=== PATIENT | female | born 1985 | race Two or more races ===

== ENCOUNTER 2024-07-04 01:52 | Emergency (ER) | payer MEDICAID, OTHER ==
[~2024-07-04] VITALS: Ht 160 cm; Wt 72.7 kg
[2024-07-04] MEDS ORDERED: SODIUM CHLORIDE 0.9% 1,000 ML IV ONE (02:30)
[2024-07-04 02:58] LABS: Basophils # (auto) 0.1 10 ^3/uL (0-0.2); Eosinophils # (auto) 0.1 10 ^3/uL (0-0.8); Monocytes # (auto) 0.8 10 ^3/uL (0-1.3); Neutrophils % (auto) 69.7 % (37.0-80.0)
[2024-07-04 03:00] LABS: Basophils % (auto) 0.6 % (0.0-2.0); Eosinophils % (auto) 0.8 % (0.0-7.0); Hematocrit 36.8 % (36.0-46.0); Hemoglobin 12.4 g/dL (12.2-16.2); Lymphocytes # (auto) 2.3 10 ^3/uL (0.4-5.4); Lymphocytes % (auto) 21.6 % (10.0-50.0); Mean Corpuscular Hemoglobin 26.7 pg (28.0-32.0); Mean Corpuscular Hgb Conc. 33.8 g/dL (32.0-36.0); Mean Corpuscular Volume 79.1 fL (80.0-100.0); Monocytes % (auto) 7.3 % (0.0-12.0); Neutrophils # (auto) 7.5 10 ^3/uL (1.6-8.6); Platelet Count (auto) 355 10^3/uL (140-450); Red Blood Cells 4.66 10^6/uL (4.0-5.20); Red Cell Distribution Width 14.8 % (11.8-14.3); White Blood Cell 10.8 10^3/uL (4.4-10.8)
[2024-07-04 03:18] LABS: Alanine Aminotransferase 22 U/L (7-40); Albumin 4.8 g/dL (3.2-4.8); Alkaline Phosphatase 99 U/L (46-116); Anion Gap 11 (5-15); Aspartate Aminotransferase 25 U/L (13-40); BUN/Creatinine Ratio 17.5 (10.0-20.0); Blood Urea Nitrogen 11 mg/dL (9-23); Calcium 9.2 mg/dL (8.7-10.4); Carbon Dioxide 23 mmol/L (20-31); Chloride 104 mmol/L (98-107); Lipase 45 U/L (12-53); Sodium 138 mmol/L (136-145); Total Protein 7.8 g/dL (5.7-8.2)
[2024-07-04 03:19] LABS: Bilirubin, Total 0.6 mg/dL (0.2-1.0); Glucose 113 mg/dL (74-106); Potassium 3.5 mmol/L (3.5-5.1)
[2024-07-04] MEDS: SODIUM CHLORIDE 0.9% 500 ML IV ONE (04:03)
[2024-07-04] MEDS: ONDANSETRON HCL 4 MG/2 ML VIAL IV ONE (04:03)
--- NOTE | 2024-07-04 04:10 | ED.PDOC ---
GI ASSESSMENT HPI Comments PER EMS, PATIENT C/O GENERALIZED ABDOMINAL PAIN WITH N/V X1 HOUR. DENIES DIARRHEA. PATIENT STATES SHE WAS DIAGNOSED WITH GALLSTONES 3 MONTHS AGO. DENIES FEVER, CHILLS, RECENT TRAVEL OR KNOWN ILL CONTACTS. 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 History Family History Family History: Reviewed,noncontributory to illness Constitutional: denies: chills, diaphoresis, fatigue, fever, malaise, sweats, weakness, others EENTM: denies: blurred vision, double vision, ear bleeding, ear discharge, ear drainage, ear pain, ear ringing, eye pain, eye redness, hearing loss, mouth pain, mouth swelling, nasal discharge, nose bleeding, nose congestion, nose pain, photophobia, tearing, throat pain, throat swelling, voice changes, others Respiratory: denies: cough, hemoptysis, orthopnea, SOB at rest, shortness of breath, SOB with excertion, stridor, wheezing, others Cardiovascular: denies: chest pain, dizzy spells, diaphoresis, Dyspnea on exertion, edema, irregular heart beat, left arm pain, lightheadedness, palpi tations, PND, syncope, others Gastrointestinal: reports: abdomen distended, abdominal pain, nausea, vomiting; denies: blood streaked bowels, constipated, diarrhea, dysphagia, difficulty swallowing, hematemesis, melena, poor appetite, poor fluid intake, rectal bleeding, rectal pain, others Genitourinary: denies: abnormal vagina bleeding, burning, dyspareunia, dysuria, flank pain, frequency, hematuria, incontinence, pain, , vagina discharge, urgency, others Neurological: denies: dizziness, fainting, headache, left sided numbness, left sided weakness, numbness, paresthesia, pre-existing deficit, right sided numbness, right sided weakness, seizure, speech problems, tingling, tremors, weakness, others Musculoskeletal: denies: back pain, gout, joint pain, joint swelling, muscle pain, muscle stiffness, neck pain, others Integumetry: denies: bruises, change in color, change in hair/nails, dryness, laceration, lesions, lumps, rash, wounds, others Allergic/Immunocompromised: denies: Difficulty Healing, Frequent Infections, Hives, Itching, others Hematologic/Lymphatic: denies: anemia, blood clots, easy bleeding, easy bruising, swollen glands, others Endocrine: denies: excessive hunger, excessive sweating, excessive thirst, excessive urination, flushing, intolerance to cold, intolerance to heat, unexplained weight gain, unexplained weight loss, others Psychiatric: denies: anxiety, bipolar disorder, depression, hopeless, panic disorder, schizophrenia, sleepless, suicidal, others Physical Exam General Appearance: No Apparent Distress, Normal HEENT: Pharynx Normal Neck: Full Range of Motion, Non-Tender Respiratory: Lungs Clear, No Respiratory Distress, Normal Breath Sounds Cardiovascular: No Edema, No JVD, No Murmur, No Gallop, Normal Peripheral Pul ses, Regular Rate/Rhythm Breast Exam: Deferred Gastrointestinal: No Organomegaly, No Pulsatile Mass, Normal Bowel Sounds, Soft, Tenderness (RIGHT UPPER QUADRANT NEGATIVE OSULLIVAN'S SIGN) Genitalia: Deferred Pelvic: Deferred Rectal: Deferred Extremities: No calf tenderness, Normal capillary refill, Normal inspection, Normal range of motion, Non-tender, No pedal edema Musculoskeletal : Apperance: Normal Neurologic: Alert, voice systems engineer II-XII nml as Tested, No Motor Deficits, Normal Affect, Normal Mood, No Sensory Deficits Cerebellar Function: Normal Reflexes: Normal Skin: Dry, Normal Color, Warm Lymphatic: No Adenopathy Was a procedure done? Was a procedure done?: No GI differential Dx Differential Diagnosis: Appendicitis, Bowel Obstruction, Cholangitis, Cholecystitis, Constipation, Gastritis/PUD, Gastroenteritis, Inflammatory BD, Pancreatitis, UTI, Urolithiasis X-Ray, Labs, Meds, VS Vital Signs Date Time Temp Pulse Resp B/P (MAP) Pulse Ox O2 Delivery O2 Flow Rate FiO2 07/04/24 05:48 98.5 77 16 130/80 (97) 99 98.5 07/04/24 04:00 Room Air* 0 21 07/04/24 02:08 98.7 103 20 150/83 (105) 95 98.7 07/04/24 01:56 74 Lab Test 07/04/24 02:44 07/04/24 00:00 Range/Units White Blood Count 10.8 4.4-10.8 10^3/uL Red Blood Count 4.66 4.0-5.20 10^6/uL Hemoglobin 12.4 12.2-16.2 g/dL Hematocrit 36.8 36.0-46.0 % Mean Corpuscular Volume 79.1 L 80.0-100.0 fL Mean Corpuscular Hemoglobin 26.7 L 28.0-32.0 pg Mean Corpuscular Hemoglobin Concent 33.8 32.0-36.0 g/dL Red Cell Distribution Width 14.8 H 11.8-14.3 % Platelet Count 355 140-450 10^3/uL Mean Platelet Volume 6.8 L 6.9-10.8 fL Neutrophils (%) (Auto) 69.7 37.0-80.0 % Lymphocytes (%) (Auto) 21.6 10.0-50.0 % Monocytes (%) (Auto) 7.3 0.0-12.0 % Eosinophils (%) (Auto) 0.8 0.0-7.0 % Basophils (%) (Auto) 0.6 0.0-2.0 % Neutrophils # (Auto) 7.5 1.6-8.6 10 ^3/uL Lymphocytes # (Auto) 2.3 0.4-5.4 10 ^3/uL Monocytes # (Auto) 0.8 0-1.3 10 ^3/uL Eosinophils # (Auto) 0.1 0-0.8 10 ^3/uL Basophils # (Auto) 0.1 0-0.2 10 ^3/uL Nucleated Red Blood Cells 0.0 % Sodium Level 138 136-145 mmol/L Potassium Level 3.5 3.5-5.1 mmol/L Chloride Level 104 98-107 mmol/L Carbon Dioxide Level 23 20-31 mmol/L Anion Gap 11 5-15 Blood Urea Nitrogen 11 9-23 mg/dL Creatinine 0.63 0.550-1.02 mg/dL Glomerular Filtration Rate Calc 116 >90 mL/min BUN/Creatinine Ratio 17.5 10.0-20.0 Serum Glucose 113 H 74-106 mg/dL Calcium Level 9.2 8.7-10.4 mg/dL Total Bilirubin 0.6 0.2-1.0 mg/dL Aspartate Amino Transferase (AST) 25 13-40 U/L Alanine Aminotransferase (ALT) 22 7-40 U/L Alkaline Phosphatase 99 46-116 U/L Total Protein 7.8 5.7-8.2 g/dL Albumin 4.8 3.2-4.8 g/dL Lipase 45 12-53 U/L Urine Color Light-yellow Yellow Urine Clarity Clear Clear Urine pH 6.0 5.0-9.0 Urine Specific [place] 1.029 1.001-1.035 Urine Protein Negative Negative Urine Ketones 1+ H Negative Urine Blood 1+ H Negative /uL Urine Nitrite Negative Negative Urine Bilirubin Negative Negative Urine Urobilinogen Normal Negative mg/dL Urine Leukocyte Esterase Negative Negative /uL Urine RBC 4 0 - 4 /hpf Urine Microscopic WBC < 1 0-5 /HPF Urine Squamous Epithelial Cells Few <5 /hpf Urine Bacteria None seen None Seen /hpf Urine Mucus Few None Seen Urine Glucose Normal Normal mg/dL Current Medications Medications (Trade) Dose Ordered Sig/[place] Route Start Time Stop Time Status Last Admin Ondansetron HCl (Zofran) 4 mg ONCE ONCE IV 07/04/24 04:00 07/04/24 04:01 DC 07/04/24 04:03 Sodium Chloride 500 ml @ 500 mls/hr Q1H ONCE IV 07/04/24 04:00 07/04/24 04:59 DC 07/04/24 04:03 X-Ray, Labs, Meds, VS Comment IMPRESSION: Cholelithiasis without sonographic evidence of acute cholecystitis. Hepatic steatosis and hepatomegal ULTRASOUND NOTED GALLSTONES WITHOUT CHOLECYSTITIS. PATIENT STATES PAIN HAS RESOLVED REQUESTING DISCHARGE AT THIS TIME. ADVISED ON DIET. PATIENT WAS ADVISED TO FOLLOW UP WITH HER PCP IN 2-3 DAYS. ER RETURN PRECAUTIONS GIVEN PATIENT INDICATES UNDERSTANDING AND AGREES WITH DISCHARGE PLAN OF CARE. Time of 1ST Reevaluation: 03:45 Reevaluation 1ST: Unchanged Time of 2ND Reevaluation: 06:02 Reevaluation 2ND: Improved Patient Education/Counseling: Diagnosis, Treatment, Prognosis, Need For Follow Up Family Education/Counseling: No Family Present Departure 1 Departure Time of Disposition: 06:01 Impression: Primary Impression: Cholelithiasis Qualified Codes: K80.20 - Calculus of gallbladder without cholecystitis without obstruction Disposition: 01 HOME / SELF CARE / HOMELESS Condition: Stable Discharged With: Self Critical Care Note Critical Care Time?: No Stability Stability form required: MATEO Jolly July 04, 2024 04:10
[2024-07-04] MEDS: MORPHINE SULFATE INJ 2 MG/ml SYRG IV ONE (04:13)
[2024-07-04 04:34] LABS: Urine Bacteria None Seen /hpf (None Seen)
--- NOTE | 2024-07-04 04:41 | ECG ---
[facility] Test Date: 2024-07-04 Test Time: 01:56:11 Pat Name: NEVIN PACK Department: ED Room: Gender: F Crane Chaser: MAURI : 1985 Requested By: MATOE ARTIS Order Number: [id number] Reading MD: Gage Johnson Measurements Intervals [place] Rate: 74 P: 50 UT: 174 QRS: 52 QRSD: 91 T: 47 QT: 404 QTc: 449 Interpretive Statements Sinus rhythm Anteroseptal infarct, age indeterminate Electronically Signed On 07-04-2024 12:18:06 PDT by Gage Johnson Please click the below link to view image of tracing.
[2024-07-04 04:51] LABS: Urine Blood 1+ /uL (Negative); Urine Clarity Clear (Clear); Urine Color Light-Yellow (Yellow); Urine Mucus FEW (None Seen); Urine Protein, UAD Negative (Negative); Urine Specific Gravity 1.029 (1.001-1.035); Urine Squamous Epithelial Cell FEW /hpf (<5); Urine Urobilinogen Normal (Negative)
[2024-07-04 04:52] LABS: Urine WBC < 1 /HPF (0-5)
[2024-07-04 05:48] VITALS: BP 130/80; PULSE 77; RESP 16; TEMP 98.5; O2SAT 99
--- NOTE | 2024-07-04 05:51 | DVH ---
INDICATION: Right upper quadrant pain history of gallstones TECHNIQUE: Multiple real-time sonographic images were obtained of the right upper quadrant. COMPARISON: None FINDINGS: The liver demonstrates increased echotexture without focal mass lesions. The liver measures 20 cm. There is no intrahepatic or extrahepatic ductal dilatation. The common duct measures 3 mm. Gallstones. The gallbladder wall measures 3 mm and is within normal limits. The right kidney measures 10.1 cm. The right kidney is normal in contour, size, and shape. The echo genicity is normal. There is no hydronephrosis. The pancreas is not well visualized due to overlying bowel gas. IMPRESSION: Cholelithiasis without sonographic evidence of acute cholecystitis. Hepatic steatosis and hepatomegaly.
== END 2024-07-04 06:11 | disposition home or self-care (01) ==
LOC: ER 01:52 → EDBD 01:52 → ER 06:11
DX: K80.20 Calculus of gallbladder without cholecystitis without obstruction (principal); R11.2 Nausea with vomiting, unspecified; Z71.3 Dietary counseling and surveillance
CPT/HCPCS: 36415; 76705; 80053; 81001; 83690; 85025; 93005; 96361; 96374; 99285; J2270; J2405; J7040

== ENCOUNTER 2024-08-04 18:08 | Emergency (ER) | payer MEDICAID ==
[~2024-08-04] VITALS: Ht 167.6 cm; Wt 66.0 kg
--- NOTE | 2024-08-04 18:24 | ED.PDOC ---
GI ASSESSMENT HPI Comments 38-year-old female came to ER via EMS for abdominal pain. Patient has history of gallstones, states 20 minutes ago she developed sudden onset sharp, constant epigastric abdominal pain radiating to her left side, associated with nausea and chills. Denies any urinary symptoms or changes in bowel habits. Chief Complaint: Abdominal pain Time Seen by MD: 18:23 Reviewed Notes: Nurses Notes Allergies: Coded Allergies: NO KNOWN ALLERGIES (Unverified , 07/04/24) Home Meds Active Scripts Dicyclomine Hcl (BENTYL CAPSULE) 10 Mg Cp, 2 CAP PO Q6HP PRN, #30 CAP 11 Refills prn abdominal pain Prov:MARTINA LR MD 08/04/24 Omeprazole Magnesium (Omeprazole) 20 Mg Tab, 20 MG PO DAILY, #30 TAB Prov:MARTINA LR MD 08/04/24 Acetaminophen (Tylenol Extra Strength) 500 Mg Tab, 1000 MG PO Q6HP PRN, #30 TAB prn pain Prov:MARTINA LR MD 08/04/24 Cephalexin Monohydrate (Cephalexin) 500 Mg Cap, 1 CAP PO QID for 10 Days, #40 CAP Prov:MARTINA LR MD 08/04/24 Information Source: Patient Mode of Arrival: EMS Timing: Minutes (20) Duration: Since onset Prehospital treatment: None Quality: Sharp Vomitus: None Stool: Normal Severity: Moderate Recent: None Recent Hx of: Abdominal Surgery Pain Location: Epigastric Modifying Factors: Nothing Associated sign and symptoms: Nausea, Abdominal Pain Past Medical History PAST MEDICAL HISTORY: Gallstones 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 Family History Family History: Reviewed,noncontributory to illness Social History Smoker: Non-Smoker Alcohol: Denies ETOH Use Drugs: Denies Drug Use Lives In: Home Constitutional: denies: chills, diaphoresis, fatigue, fever, malaise, sweats, weakness, others EENTM: denies: blurred vision, double vision, ear bleeding, ear discharge, ear drainage, ear pain, ear ringing, eye pain, eye redness, hearing loss, mouth pain, mouth swelling, nasal discharge, nose bleeding, nose congestion, nose pain, photophobia, tearing, throat pain, throat swelling, voice changes, others Respiratory: denies: cough, hemoptysis, orthopnea, SOB at rest, shortness of breath, SOB with excertion, stridor, wheezing, others Cardiovascular: denies: chest pain, dizzy spells, diaphoresis, Dyspnea on exe rtion, edema, irregular heart beat, left arm pain, lightheadedness, palpitations, PND, syncope, others Gastrointestinal: reports: abdominal pain, nausea; denies: abdomen distended, blood streaked bowels, constipated, diarrhea, dysphagia, difficulty swallowing, hematemesis, melena, poor appetite, poor fluid intake, rectal bleeding, rectal pain, vomiting, others Genitourinary: denies: abnormal vagina bleeding, burning, dyspareunia, dysuria, flank pain, frequency, hematuria, incontinence, pain, , vagina discharge, urgency, others Neurological: denies: dizziness, fainting, headache, left sided numbness, left sided weakness, numbness, paresthesia, pre-existing deficit, right sided numbness, right sided weakness, seizure, speech problems, tingling, tremors, weakness, others Musculoskeletal: denies: back pain, gout, joint pain, joint swelling, muscle pain, muscle stiffness, neck pain, others Integumetry: denies: bruises, change in color, change in hair/nails, dryness, laceration, lesions, lumps, rash, wounds, others Allergic/Immunocompromised: denies: Difficulty Healing, Frequent Infections, Hives, Itching, others Hematologic/Lymphatic: denies: anemia, blood clots, easy bleeding, easy bruisin g, swollen glands, others Endocrine: denies: excessive hunger, excessive sweating, excessive thirst, excessive urination, flushing, intolerance to cold, intolerance to heat, unexplained weight gain, unexplained weight loss, others Psychiatric: denies: anxiety, bipolar disorder, depression, hopeless, panic disorder, schizophrenia, sleepless, suicidal, others Physical Exam General Appearance: Mild Distress HEENT: Other (Pupils and face symmetric. Moist mucous membranes.) Neck: Full Range of Motion, Normal Inspection Respiratory: Lungs Clear, No Accessory Muscle Use, No Respiratory Distress, Normal Breath Sounds Cardiovascular: No Edema, No JVD, Regular Rate/Rhythm Breast Exam: Deferred Gastrointestinal: Epigastric, Tenderness, Other (L flank/LUQ) Genitalia: Deferred Pelvic: Deferred Rectal: Deferred Extremities: Normal inspection, Normal range of motion, Non-tender, No pedal edema Neurologic: Alert (Oriented x4), Normal Affect, Normal Mood, Other (Ambulatory) Cerebellar Function: NOT DONE Reflexes: NOT DONE Skin: Dry, Normal Color, Warm Lymphatic: NOT DONE Was a procedure done? Was a procedure done?: No GI differential Dx Differential Diagnosis: Cholecystitis, Diverticular disease, Gastritis/PUD, Gastroenteritis, Pancreatitis, UTI, Urolithiasis, Food Poisoning, , Impaction, Stress Ulcer, Kidney Stone X-Ray, Labs, Meds, VS Vital Signs Date Time Temp Pulse Resp B/P (MAP) Pulse Ox O2 Delivery O2 Flow Rate FiO2 08/04/24 19:57 98.1 70 18 128/63 (84) 97 98.1 08/04/24 19:56 70 18 128/63 08/04/24 18:54 86 16 97 Room Air* 0 21 08/04/24 18:51 97.9 81 17 159/96 (117) 98 97.9 08/04/24 18:51 81 17 98 Room Air 08/04/24 18:51 81 17 159/96 08/04/24 18:40 98.7 76 24 160/100 (120) 99 98.7 Lab Test 08/04/24 20:12 08/04/24 18:37 Range/Units Urine Color Yellow Yellow Urine Clarity Clear Clear Urine pH 5.5 5.0-9.0 Urine Specific [place] 1.022 1.001-1.035 Urine Protein Negative Negative Urine Ketones 1+ H Negative Urine Blood 1+ H Negative /uL Urine Nitrite Negative Negative Urine Bilirubin Negative Negative Urine Urobilinogen Normal Negative mg/dL Urine Leukocyte Esterase 1+ Negative /uL Urine RBC 5 0 - 4 /hpf Urine Microscopic WBC 2 0-5 /HPF Urine Squamous Epithelial Cells Few <5 /hpf Urine Bacteria Few H None Seen /hpf Urine Mucus Few None Seen Urine Glucose Normal Normal mg/dL Urine Test Negative Negative White Blood Count 9.7 4.4-10.8 10^3/uL Red Blood Count 4.73 4.0-5.20 10^6/uL Hemoglobin 12.4 12.2-16.2 g/dL Hematocrit 36.6 36.0-46.0 % Mean Corpuscular Volume 77.3 L 80.0-100.0 fL Mean Corpuscular Hemoglobin 26.1 L 28.0-32.0 pg Mean Corpuscular Hemoglobin Concent 33.8 32.0-36.0 g/dL Red Cell Distribution Width 15.5 H 11.8-14.3 % Platelet Count 352 140-450 10^3/uL Mean Platelet Volume 6.9 6.9-10.8 fL Neutrophils (%) (Auto) 63.8 37.0-80.0 % Lymphocytes (%) (Auto) 26.0 10.0-50.0 % Monocytes (%) (Auto) 8.5 0.0-12.0 % Eosinophils (%) (Auto) 1.1 0.0-7.0 % Basophils (%) (Auto) 0.6 0.0-2.0 % Neutrophils # (Auto) 6.2 1.6-8.6 10 ^3/uL Lymphocytes # (Auto) 2.5 0.4-5.4 10 ^3/uL Monocytes # (Auto) 0.8 0-1.3 10 ^3/uL Eosinophils # (Auto) 0.1 0-0.8 10 ^3/uL Basophils # (Auto) 0.1 0-0.2 10 ^3/uL Nucleated Red Blood Cells 0.1 % Sodium Level 138 136-145 mmol/L Potassium Level 3.8 3.5-5.1 mmol/L Chloride Level 106 98-107 mmol/L Carbon Dioxide Level 22 20-31 mmol/L Anion Gap 10 5-15 Blood Urea Nitrogen 10 9-23 mg/dL Creatinine 0.73 0.550-1.02 mg/dL Glomerular Filtration Rate Calc 108 >90 mL/min BUN/Creatinine Ratio 13.7 10.0-20.0 Serum Glucose 114 H 74-106 mg/dL Calcium Level 9.3 8.7-10.4 mg/dL Total Bilirubin 0.5 0.2-1.0 mg/dL Aspartate Amino Transferase (AST) 17 <34 U/L Alanine Aminotransferase (ALT) 14 7-40 U/L Alkaline Phosphatase 99 46-116 U/L Total Protein 7.7 5.7-8.2 g/dL Albumin 4.8 3.2-4.8 g/dL Lipase 45 12-53 U/L Current Medications Medications (Trade) Dose Ordered Sig/Lenin Route Start Time Stop Time Status Last Admin Morphine Sulfate 4 mg ONCE ONCE IV 08/04/24 18:30 08/04/24 18:31 DC 08/04/24 18:51 Ondansetron HCl (Zofran) 4 mg ONCE ONCE IV 08/04/24 18:30 08/04/24 18:31 DC 08/04/24 18:50 Pantoprazole Sodium (Protonix) 40 mg ONCE ONCE IV 08/04/24 18:30 08/04/24 18:31 DC 08/04/24 18:54 Sodium Chloride 1,000 ml @ 1,000 mls/hr Q1H ONCE IV 08/04/24 18:30 08/04/24 19:29 DC 08/04/24 18:49 Ceftriaxone Sodium 50 ml @ 100 mls/hr ONCE ONCE IV 08/04/24 22:15 08/04/24 22:44 DC 08/04/24 22:37 [place] [address] Ph: [phone] DIAGNOSTIC IMAGING Diagnostic Imaging Report : [id number] Signed PATIENT: NEVIN PACK LACCT: [id number] UNIT: [id number] : 1985 LOC: ER ROOM / BED: / AGE / SEX: 38 / F ADM STATUS: REG ER SERVICE 18 ORDERING PHYSICIAN: MARTINA LR MD PROCEDURE(s): ABPL - CT AB PEL WO CON-NO ORAL OR IV REASON: epig and L flank pain ORDER NUMBER(s): [id number], ACCESSION NUMBER(s): [id number] Exam: CT CT AB PEL WO CON-NO ORAL OR IV History: epig and L flank pain Comparison Study: None TECHNIQUE: Multidetector CT of the abdomen and pelvis was performed from lung bases to pubic symphysis. Imaging was performed without IV contrast. Axial, coronal, and sagittal multiplanar reformats were obtained from the axial data set by the technologist. RADIATION DOSE: DLP 453 mGy.cm; CTDI vol 7.99 mGy. Findings: Limited evaluation of the solid organs in the absence of IV contrast. Liver: Unremarkable. Spleen: Unremarkable. Pancreas: Unremarkable. Gallbladder: Cholelithiasis. No biliary ductal dilatation. Adrenals: Unremarkable Kidneys: Unremarkable. Pelvic Viscera: 5.3 cm right adnexal predominantly low attenuating lesion. Possible fibroid appearance of the uterus. Vasculature: Unremarkable. Retroperitoneum: Unremarkable. Bowel: No bowel obstruction. No CT evidence of appendicitis. Musculoskeletal: Unremarkable. Soft tissues: Unremarkable Lungs: The lung bases are clear. Impression: 1. 5.3 cm predominantly low attenuating right adnexal lesion. This may be further assessed with a pelvic ultrasound. 2. Additional findings as detailed. ATED BY: SUSAN WINSTON MD DICTATED DATE/TIME: 08/04/242156 X-Ray, Labs, Meds, VS Comment 38-year-old female with a history of gallstones presenting complaining of epigastric pain and left flank pain Initial vitals remarkable for respiratory rate 24, BP 160/100 Exam remarkable for epigastric and left flank/left upper quadrant tenderness to palpation. Nontender to percussion. No right upper quadrant tenderness or Cartwright's sign Rhythm strip independently interpreted by me: Sinus rhythm, rate 76, no ectopy. CT abdomen and pelvis Impression: 1. 5.3 cm predominantly low attenuating right adnexal lesion. This may be further assessed with a pelvic ultrasound. 2. Additional findings as detailed. CBC , comprehensive metabolic panel and lipase unremarkable, urine negative. UA abnormal consistent with UTI Patient treated with the following in the ED: 1 L 0.9 normal saline IV bolus, morphine 4 mg IV, Zofran 4 mg IV, Protonix 40 mg IV, Rocephin 1 g IV On re-evaluation, patient states pain has improved. Vitals were stable. Hospitalization was considered, however patient had rapid improvement of symptoms with treatment in the ED, and I no longer feel hospitalization is necessary. Patient now appears stable for discharge with close outpatient follow-up with her primary physician. Rx Bentyl, Zofran, Tylenol, Keflex Time of 1ST Reevaluation: 18:20 Reevaluation 1ST: Unchanged Patient Education/Counseling: Diagnosis, Treatment Family Education/Counseling: No Family Present SEPSIS Sepsis Screen Physician Orders Ct Ab Pel Wo Con-No Oral Or Iv (08/04/24 18:19) Vital Signs Date Time Temp Pulse Resp B/P (MAP) Pulse Ox O2 Delivery O2 Flow Rate FiO2 08/04/24 19:57 98.1 70 18 128/63 (84) 97 98.1 08/04/24 19:56 70 18 128/63 08/04/24 18:54 86 16 97 Room Air* 0 21 08/04/24 18:51 97.9 81 17 159/96 (117) 98 97.9 08/04/24 18:51 81 17 98 Room Air 08/04/24 18:51 81 17 159/96 08/04/24 18:40 98.7 76 24 160/100 (120) 99 98.7 Laboratory Tests Test 08/04/24 18:37 White Blood Count 9.7 10^3/uL (4.4-10.8) Medications Medications Dose Ordered Sig/Lenin Route Start Time Stop Time Status Last Admin Dose Admin Ceftriaxone Sodium 50 ml @ 100 mls/hr ONCE ONCE IV 08/04/24 22:15 08/04/24 22:44 DC 08/04/24 22:37 Morphine Sulfate 4 mg ONCE ONCE IV 08/04/24 18:30 08/04/24 18:31 DC 08/04/24 18:51 Ondansetron HCl 4 mg ONCE ONCE IV 08/04/24 18:30 08/04/24 18:31 DC 08/04/24 18:50 Pantoprazole Sodium 40 mg ONCE ONCE IV 08/04/24 18:30 08/04/24 18:31 DC 08/04/24 18:54 Sodium Chloride 1,000 ml @ 1,000 mls/hr Q1H ONCE IV 08/04/24 18:30 08/04/24 19:29 DC 08/04/24 18:49 Departure 1 Departure Time of Disposition: 22:00 Impression: Primary Impression: UTI (urinary tract infection) Disposition: HOME / SELF CARE / HOMELESS Condition: Stable Additional Instructions: Your blood tests were unremarkable. Your urine test showed you have a urinary tract infection. Your CT scan showed an incidental finding of a lesion near your right ovary. No acute treatment is necessary at this time. Follow-up with your OBGYN or primary doctor for further evaluation with ultrasound. I have prescribed pain medication and antibiotics for your UTI. [address] [address] Ph: [phone] DIAGNOSTIC IMAGING Diagnostic Imaging Report : [id number] Signed PATIENT: NEVIN PACK ACCT: [id number] UNIT: [id number] : 1985 LOC: ER ROOM / BED: / AGE / SEX: 38 / F ADM STATUS: REG ER SERVICE 18 ORDERING PHYSICIAN: MARTINA LR MD PROCEDURE(s): ABPL - CT AB PEL WO CON-NO ORAL OR IV REASON: epig and L flank pain ORDER NUMBER(s): [id number], ACCESSION NUMBER(s): [id number] Exam: CT CT AB PEL WO CON-NO ORAL OR IV History: epig and L flank pain Comparison Study: None TECHNIQUE: Multidetector CT of the abdomen and pelvis was performed from lung bases to pubic symphysis. Imaging was performed without IV contrast. Axial, coronal, and sagittal multiplanar reformats were obtained from the axial data set by the technologist. RADIATION DOSE: DLP 453 mGy.cm; CTDI vol 7.99 mGy. Findings: Limited evaluation of the solid organs in the absence of IV contrast. Liver: Unremarkable. Spleen: Unremarkable. Pancreas: Unremarkable. Gallbladder: Cholelithiasis. No biliary ductal dilatation. Adrenals: Unremarkable Kidneys: Unremarkable. Pelvic Viscera: 5.3 cm right adnexal predominantly low attenuating lesion. Pos sible fibroid appearance of the uterus. Vasculature: Unremarkable. Retroperitoneum: Unremarkable. Bowel: No bowel obstruction. No CT evidence of appendicitis. Musculoskeletal: Unremarkable. Soft tissues: Unremarkable Lungs: The lung bases are clear. Impression: 1. 5.3 cm predominantly low attenuating right adnexal lesion. This may be further assessed with a pelvic ultrasound. 2. Additional findings as detailed. e-Prescriptions Dicyclomine Hcl (BENTYL CAPSULE) 10 Mg Cp 2 CAP PO Q6HP PRN, #30 CAP 11 Refills prn abdominal pain Prov: MARTINA LR MD 08/04/24 Omeprazole Magnesium (Omeprazole) 20 Mg Tab 20 MG PO DAILY, #30 TAB Prov: MARTINA LR MD 08/04/24 Acetaminophen (Tylenol Extra Strength) 500 Mg Tab 1000 MG PO Q6HP PRN, #30 TAB prn pain Prov: MARTINA LR MD 08/04/24 Cephalexin Monohydrate (Cephalexin) 500 Mg Cap 1 CAP PO QID for 10 Days, #40 CAP Prov: MARTINA LR MD 08/04/24 Discharged With: Relative Critical Care Note Critical Care Time?: No Stability Stability form required: No Heart Score Heart Score: Heart Score Response (Comments) Value History N/A 0 EKG N/A 0 Age N/A 0 Risk Factors N/A 0 Troponin N/A 0 Total 0 I personally scribed for MARTINA LR MD ([email or web address]) on 08/04/24 at 18:24. Electronically submitted by Osvaldo Manley ([facility]). MARTINA LR MD Aug 04, 2024 18:24
[2024-08-04] MEDS ORDERED: ONDANSETRON HCL 4 MG/2 ML VIAL ONE (18:49)
[2024-08-04] MEDS: SODIUM CHLORIDE 0.9% 1,000 ML IV ONE (18:49)
[2024-08-04] MEDS ORDERED: MORPHINE SULFATE 4 MG/ML SYR/VIAL ONE (18:49)
[2024-08-04] MEDS: ONDANSETRON HCL 4 MG/2 ML VIAL IV ONE (18:50)
[2024-08-04 18:51] LABS: Basophils # (auto) 0.1 10 ^3/uL (0-0.2); Basophils % (auto) 0.6 % (0.0-2.0); Eosinophils # (auto) 0.1 10 ^3/uL (0-0.8); Hemoglobin 12.4 g/dL (12.2-16.2); Monocytes # (auto) 0.8 10 ^3/uL (0-1.3); Nucleated Red Blood Cells % 0.1 %
[2024-08-04] MEDS: MORPHINE SULFATE 4 MG/ML SYR/VIAL IV ONE (18:51)
[2024-08-04 18:54] VITALS: PULSE 86; RESP 16; O2SAT 97
[2024-08-04] MEDS: PANTOPRAZOLE 40 MG/10 ML VIAL INJ IV ONE (18:54)
[2024-08-04 18:55] LABS: Eosinophils % (auto) 1.1 % (0.0-7.0); Hematocrit 36.6 % (36.0-46.0); Lymphocytes # (auto) 2.5 10 ^3/uL (0.4-5.4); Mean Corpuscular Hemoglobin 26.1 pg (28.0-32.0); Mean Corpuscular Hgb Conc. 33.8 g/dL (32.0-36.0); Mean Corpuscular Volume 77.3 fL (80.0-100.0); Monocytes % (auto) 8.5 % (0.0-12.0); Neutrophils # (auto) 6.2 10 ^3/uL (1.6-8.6); Neutrophils % (auto) 63.8 % (37.0-80.0); Platelet Count (auto) 352 10^3/uL (140-450); Red Blood Cells 4.73 10^6/uL (4.0-5.20); Red Cell Distribution Width 15.5 % (11.8-14.3); White Blood Cell 9.7 10^3/uL (4.4-10.8)
[2024-08-04] MEDS ORDERED: PANTOPRAZOLE 40 MG/10 ML VIAL INJ IV ONE (18:55)
[2024-08-04 19:24] LABS: Alanine Aminotransferase 14 U/L (7-40); Albumin 4.8 g/dL (3.2-4.8); Alkaline Phosphatase 99 U/L (46-116); Anion Gap 10 (5-15); Aspartate Aminotransferase 17 U/L (<34); BUN/Creatinine Ratio 13.7 (10.0-20.0); Bilirubin, Total 0.5 mg/dL (0.2-1.0); Blood Urea Nitrogen 10 mg/dL (9-23); Calcium 9.3 mg/dL (8.7-10.4); Carbon Dioxide 22 mmol/L (20-31); Chloride 106 mmol/L (98-107); Lipase 45 U/L (12-53); Potassium 3.8 mmol/L (3.5-5.1); Sodium 138 mmol/L (136-145); Total Protein 7.7 g/dL (5.7-8.2)
[2024-08-04 19:26] LABS: Glucose 114 mg/dL (74-106)
[2024-08-04 20:35] LABS: Urine Bacteria FEW /hpf (None Seen); Urine Blood 1+ /uL (Negative); Urine Clarity Clear (Clear); Urine Color Yellow (Yellow); Urine Mucus FEW (None Seen); Urine Protein, UAD Negative (Negative); Urine Specific Gravity 1.022 (1.001-1.035); Urine Squamous Epithelial Cell FEW /hpf (<5); Urine Urobilinogen Normal (Negative); Urine WBC 2 /HPF (0-5); Urine pH 5.5 (5.0-9.0)
--- NOTE | 2024-08-04 22:00 | DVH ---
Exam: CT CT AB PEL WO CON-NO ORAL OR IV History: epig and L flank pain Comparison Study: None TECHNIQUE: Multidetector CT of the abdomen and pelvis was performed from lung bases to pubic symphysi s. Imaging was performed without IV contrast. Axial, coronal, and sagittal multiplanar reformats were obtained from the axial data set by the technologist. RADIATION DOSE: DLP 453 mGy.cm; CTDI vol 7.99 mGy. Findings: Limited evaluation of the solid organs in the absence of IV contrast. Liver: Unremarkable. Spleen: Unremarkable. Pancreas: Unremarkable. Gallbladder: Cholelithiasis. No biliary ductal dilatation. Adrenals: Unremarkable Kidneys: Unremarkable. Pelvic Viscera: 5.3 cm right adnexal predominantly low attenuating lesion. Possible fibroid appearanc e of the uterus. Vasculature: Unremarkable. Retroperitoneum: Unremarkable. Bowel: No bowel obstruction. No CT evidence of appendicitis. Musculoskeletal: Unremarkable. Soft tissues: Unremarkable Lungs: The lung bases are clear. Impression: 1. 5.3 cm predominantly low attenuating right adnexal lesion. This may be further assessed with a pe lvic ultrasound. 2. Additional findings as detailed.
[2024-08-04] MEDS ORDERED: DICY10CA PO (22:07)
[2024-08-04] MEDS ORDERED: ACET-1304 PO (22:07)
[2024-08-04] MEDS ORDERED: CEPH500C PO (22:07)
[2024-08-04] MEDS ORDERED: OMEP-434 PO (22:07)
[2024-08-04] MEDS ORDERED: cefTRIAXone 1GM/50ML D5W 50 ML IV ONE (22:35)
[2024-08-04] MEDS: cefTRIAXone 1GM/50ML D5W 50 ML IV ONE (22:37)
[2024-08-04 23:15] VITALS: BP 144/66; PULSE 76; RESP 21; TEMP 98.7; O2SAT 98
== END 2024-08-04 23:15 | disposition home or self-care (01) ==
LOC: EDBD 18:08 → EDUNIT# 18:08 → ER 18:15
DX: N39.0 Urinary tract infection, site not specified (principal); R10.13 Epigastric pain; R11.0 Nausea; Z98.890 Other specified postprocedural states; Z79.899 Other long term (current) drug therapy
CPT/HCPCS: 36415; 74176; 80053; 81001; 81025; 83690; 85025; 96361; 96365; 96375; 99285; J0696; J2270; J2405; J2470; J7030